=== PATIENT | male | born 1995 | race Asian ===

== ENCOUNTER 2018-03-13 07:14 | Day surgery (SDC) | payer OTHER ==
[~2018-03-13] VITALS: Ht 160 cm; Wt 100.9 kg
[~2018-03-13 07:14] MED LIST: MULT-1203 PO; SODIUM CHLORIDE 0.9% 1,000 ML IV ONE
[2018-03-13] MEDS ORDERED: BENZOCAINE 20% 50 MCG/SPRAY 57 GM TP ONE (07:15)
[2018-03-13] MEDS ORDERED: LIDOCAINE HCL 2% 5 ML JELLY TP ONE (07:15)
[2018-03-13] MEDS ORDERED: LIDOCAINE HCL 2% 30 ML JELLY TP ONE (07:15)
[2018-03-13] MEDS ORDERED: FentaNYL CITRATE-PF 100 MCG/2 ML VIAL ONE (08:04)
[2018-03-13] MEDS ORDERED: MIDAZOLAM HCL 2 MG/2 ML VIAL ONE (08:04)
[2018-03-13] MEDS ORDERED: MethylPREDNISolone SOD SUCC 125 MG/2 ML VIAL IVP ONE (09:15)
[2018-03-13] MEDS ORDERED: MethylPREDNISolone SOD SUCC 125 MG/2 ML VIAL ONE (10:03)
[2018-03-13] MEDS ORDERED: OXYGEN THERAPY IH SCH (20:00)
== END 2018-03-13 11:05 | disposition home or self-care (01) ==
LOC: SURGERY 07:14
PROVIDERS: ATTEND Internal Medicine Critical Care Medicine
DX: J38.4 Edema of larynx (principal); B37.0 Candidal stomatitis; J84.111 Idiopathic interstitial pneumonia, not otherwise specified; J45.909 Unspecified asthma, uncomplicated; Q90.9 Down syndrome, unspecified; Z98.890 Other specified postprocedural states
CPT/HCPCS: 31622; 71045; 93005; J2250; J2930; J3010; J7030; 31623; 31624